=== PATIENT | female | born 1980 | race Caucasian/White ===

== ENCOUNTER 2021-07-04 12:58 | Emergency (ER) | payer OTHER ==
[~2021-07-04] VITALS: Ht 162.6 cm; Wt 72.6 kg
--- NOTE | ~2021-07-04 | EMS ---
[address] [address] EMS Patient Care Report Name: ROSA MEDINA Room #: DEP TUYET Sullivan#: [id number] Admission: 07/04/21 Attend Phys: Discharge: 07/04/21 Date of : 80 Report #: [id number] THIS REPORT FOR: //name// Report Transmitted: 07/07/2021 09:32 EMS Care Summary [place], [place]/[facility] Incident [id number] @ 07/04/2021 12:27 Incident Location [address] [place] [address] Patient ROSA PHAM Female, 41 Years 1980 Patient Address [address] [place] [id number] Patient History Other,Depression,Anxiety,Post Traumatic Stress Disorder (PTSD), Patient Allergies Keflex, Patient Medications None Reported, Chief Complaint ELECTRICAL PAIN THROUGHOUT BODY Disposition Transported No Lights/[place] Dispatch Reason Sick Person Transported To [facility] Narrative UPON ARRIVAL WE FOUND OUR ANXIOUS 41 YEAR OLD FEMALE PATIENT, WITH A HX OF CHRONIC PAIN, AMBULATING OUTSIDE IN FRONT OF THE [facility] COMPLAINING OF AN ELECTRICAL TYPE PAIN THROUGHOUT HER BODY X 6 DAYS. THE PATIENT HAS BEEN SEEN AT [facility], [facility], AND [facility] WITH NO RELIEF. SHE REQUESTS [address] [address] EMS Patient Care Report Name: ROSA MEDINA Room #: DEP ER [facility]#: [id number] Admission: 07/04/21 Attend Phys: Discharge: 07/04/21 Date of : 80 Report #: [id number] TRANSPORT TO [facility] FOR EVALUATION. Initial Vitals @12:40P: 115,R: 18,BP: 172/125,Pain: 10/10,GCS: 15,SpO2: 97,Revised Trauma: 12, @12:54P: 96,R: 16,BP: 170/100,Pain: 10/10,GCS: 15,SpO2: 98,Revised Trauma: 12, Assessments @12:39MENTAL:Time Oriented,Event Oriented,Place Oriented,Person Oriented,Other,SKIN:HEENT:Eyes: Right Pupil: 4-mm,Eyes: Left Pupil: 4-mm,Head/Face: No Abnormalities,Neck/Airway: No Abnormalities,LUNG SOUNDS:General: No Abnormalities,ABDOMEN:General: No Abnormalities,PELVIS//GI:No Abnormalities,EXTREMITIES:Left Arm: No Abnormalities,Right Arm: No Abnormalities,Left Leg: No Abnormalities,Right Leg: No Abnormalities,PULSE:Radial: 2+ Normal,NEURO:No Abnormalities, Impression Acute Pain, not elsewhere classified Procedures @12:39ALS AssessmentResponse: UnchangedSucceeded Timeline 12:25,Call Received 12:25,Dispatch Notified 12:27,Dispatched 12:29,En Route 12:38,On Scene 12:39,At Patient 12:39,ALS Assessment,Response: UnchangedSucceeded, 12:40,BP: 172/125 M,PULSE: 115,RR: 18 R,SPO2: 97 Ox,ETCO2: ,BG: ,PAIN: 10,GCS: 15, 12:40,Depart Scene 12:54,BP: 170/100 M,PULSE: 96,RR: 16 R,SPO2: 98 Ox,ETCO2: ,BG: ,PAIN: 10,GCS: 15, 13:06,At Destination 13:08,Call Closed Disclaimer [email or web address] Copyright 2020 [employer] This EMS Care Summary contains data elements from the applicable legal record (which may be displayed differently). It is designed to provide pertinent information for the following purposes: continuity of care, clinical quality, and state data reporting. The complete legal record is available to ED staff and administrators of the receiving hospital in [employer] Patient Tracker. All data is provided "as is."
[2021-07-04 13:56] LABS: ABSOLUTE NEUTROPHILS 8.7 thou/uL (1.4-8.2); BASOPHILS 0.7 % (0.0-2.0); EOSINOPHILS 1.1 % (0.0-3.0); HEMOGLOBIN 13.1 gm/dL (12.0-15.0); LYMPHOCYTES 20.2 % (24.0-44.0); MCH 28.8 pg (26.0-34.0); MCHC 32.9 g/dL (28.0-37.0); MCV 87.7 fL (80.0-100.0); MONOCYTES 4.9 % (1.0-8.0); PLATELET COUNT 326 thou/uL (150-400); POLYS 73.1 % (36.0-66.0); RBC 4.56 mil/uL (4.20-5.00); RDW 13.7 % (10.5-14.5); WBC 11.9 thou/uL (4.0-11.0)
[2021-07-04 14:09] LABS: CALCIUM 8.8 mg/dL (8.5-10.1); CREATININE 0.8 mg/dL (0.6-1.0)
[2021-07-04 14:15] LABS: ALBUMIN 3.8 g/dL (3.4-5.0); TOTAL BILIRUBIN 0.3 mg/dL (0.2-1.0); TOTAL PROTEIN 7.7 g/dL (6.4-8.2)
[2021-07-04 14:24] LABS: URINE BILIRUBIN NEGATIVE (Negative); URINE BLOOD NEGATIVE (Negative); URINE CLARITY CLEAR; URINE COLOR YELLOW; URINE GLUCOSE-RANDOM* NEGATIVE (Negative); URINE KETONES NEGATIVE (Negative); URINE NITRITE-REFLEX NEGATIVE (Negative); URINE PROTEIN (DIPSTICK) NEGATIVE (Negative); URINE UROBILINOGEN 0.2 E.U./dl (0.2-1.0)
[2021-07-04 14:28] LABS: URINE LEUKOCYTES-REFLEX 1+ (Negative)
[2021-07-04 14:37] LABS: SQUAMOUS >10 Many /LPF (0-3); URINE RBC 1-2 Rare /HPF (NONE SEEN); URINE WBC-REFLEX 6-15 Few /HPF (0-5)
[2021-07-04] MEDS ORDERED: MACROBID 100 M100 MG PO (14:42)
[2021-07-04] MEDS ORDERED: MEDROLDOSEPACK PO (14:42)
[2021-07-04] MEDS ORDERED: FLEXERIL PO (14:42)
[2021-07-04 14:56] VITALS: BP 142/90
== END 2021-07-04 14:57 | disposition home or self-care (01) ==
LOC: ER 12:58
PROVIDERS: Physician Assistant
DX: N39.0 Urinary tract infection, site not specified (principal); R10.84 Generalized abdominal pain; Z88.1 Allergy status to other antibiotic agents; Z88.8 Allergy status to other drugs, medicaments and biological substances